=== PATIENT | female | born 1960 | race Caucasian/White ===

== ENCOUNTER 2023-04-12 13:53 | Emergency (ER) | payer BC, OTHER ==
[2023-04-12] MEDS ORDERED: ACETAMINOPHEN 325 MG TABLET (FP) PO ONE (14:16)
[2023-04-12 14:37] VITALS: BP 139/75; PULSE 75; RESP 15; TEMP 98.9; BMI 27.8
== END 2023-04-12 14:35 | disposition home or self-care (01) ==
LOC: FER 13:53
DX: M54.2 Cervicalgia (principal); T71.193A Asphyxiation due to mechanical threat to breathing due to other causes, assault, initial encounter; S19.9XXA Unspecified injury of neck, initial encounter; Y04.8XXA Assault by other bodily force, initial encounter; Y93.89 Activity, other specified; Y92.219 Unspecified school as the place of occurrence of the external cause
CPT/HCPCS: 99283-25